=== PATIENT | male | born 1980 | race Caucasian/White ===

== ENCOUNTER 2023-01-03 15:39 | Outpatient (CLI) | payer MEDICAID, SELFPAY | END 2023-01-03 15:40 | disposition home or self-care (01) | LOC: AMB 01-16 14:47 | PROVIDERS: Visit Provider Family Medicine | DX: S09.90XA Unspecified injury of head, initial encounter (principal); W07.XXXA Fall from chair, initial encounter; Y92.040 Kitchen in boarding-house as the place of occurrence of the external cause; Y99.0 Civilian activity done for income or pay | CPT/HCPCS: A0425; A0427 ==